=== PATIENT | female | born 1975 | race African-American/Black ===

== ENCOUNTER 2017-04-21 11:01 | Day surgery (SDC) | payer MEDICARE ==
[~2017-04-21] VITALS: Ht 175.3 cm; Wt 147.7 kg
[2017-04-21] MEDS ORDERED: COREG12.5 MG PO (11:39)
[2017-04-21] MEDS ORDERED: PRINIVIL20 MG (11:40)
[2017-04-21] MEDS ORDERED: FERRETTS324 MG PO (11:40)
[2017-04-21] MEDS ORDERED: ZOLOFT100 MG PO (11:41)
[2017-04-21] MEDS ORDERED: K-TAB10 MEQ PO (11:42)
[2017-04-21 11:52] LABS: HEMATOCRIT 36.3 % (36.0-48.0); HEMOGLOBIN 12.1 g/dL (12-16); MCH 31.4 pg (26.0-34.0); MCHC 33.3 g/dL (31.0-37.0); MCV 94.3 fL (80.0-100.0); MEAN PLATELET VOLUME 11.1 fL (7.4-10.4); RBC 3.85 10x6/uL (4.00-5.40); RDW 12.8 % (11.5-14.5); WBC 5.6 10x3/uL (4.8-10.8)
[2017-04-21 11:53] VITALS: BP 159/67; Ht 175.3 cm; Wt 147.7 kg
[2017-04-21 12:15] LABS: POTASSIUM - SERUM 2.7 mmol/L (3.5-5.1)
--- NOTE | 2017-04-21 13:30 | NUR ---
PT REC'D TO ROOM VIA STRETCHER. AWAKE, ALERT, ORIENTED.
--- NOTE | 2017-04-21 13:40 | NUR ---
DR. HAN IN TO TALK WITH PT AND FAMILY. FULL LIQ DIET PROVIDED.
[2017-04-21 14:03] LABS: ALBUMIN 3.4 g/dL (3.4-5.0); ALKALINE PHOSPHATASE 68 U/L (46-116); ALT (SGPT) 17 U/L (10-68); AMYLASE - SERUM 44 U/L (25-115); CALC OSMOLALITY 278 mosm/kg (275-300); CALCIUM 9.5 mg/dL (8.5-10.1); CHLORIDE - SERUM 102 mmol/L (98-107); CREATININE - SERUM 0.8 mg/dL (0.6-1.3); GLUCOSE 89 mg/dL (74-106); LIPASE 94 U/L (73-393); PROTEIN - SERUM 8.1 g/dL (6.4-8.2); SODIUM 141 mmol/L (136-145); UREA NITROGEN 10 mg/dL (7-18); eGFR NON AFRICAN AMERICAN 84 mL/min (90-120)
--- NOTE | 2017-04-21 14:05 | NUR ---
POTASSIUM DOSE GIVEN ORDERED.
--- NOTE | 2017-04-21 14:12 | NUR ---
IV D/C'D CATH INTACT.
--- NOTE | 2017-04-21 14:22 | NUR ---
D/C INSTRUCTIONS EXPLAINED TO PT. VOICED UNDERSTANDING. COPIES OF ALL GIVEN, WELL WRITTEN RX FOR ZANTAC PER DR. HAN.
--- NOTE | 2017-04-21 14:23 | NUR ---
D/C'D HOME VIA W/C TO PRIVATE CAR.
--- NOTE | 2017-04-26 15:23 | OP ---
PATIENT NAME: CHRISTIAN LORD MEDICAL RECORD: [id number] :77 LOCATION:[facility] ADMISSION DATE: SURGEON: CHRISSIE HAN MD DATE OF OPERATION: 04/21/2017 PROCEDURE: EGD with biopsy. INDICATIONS: Ms. Lord is a delightful 41-year-old woman with a history of heartburn and upper abdominal pain. She presents for outpatient EGD. PREMEDICATIONS: Total IV anesthesia (BMI of 48). INSTRUMENT: Olympus video gastroscope. PROCEDURE AND FINDINGS: After receiving informed consent, Ms. Lord' posterior pharynx was anesthetized with Cetacaine spray. She was placed in left lateral decubitus position, sedated as per anesthesia. After achieving adequate level of sedation, gastroscope was introduced per orally and advanced to the duodenum without difficulty. The esophageal mucosa was without erythema, ulcers, strictures or masses, appeared normal down the GE junction. Biopsies were taken from the distal third of the esophagus to rule out microscopic evidence of GE reflux disease. A small sliding type hiatal hernia was present. Gastric mucosa was notable for several patches of erythema in the body of the stomach, which were biopsied. No lesions were seen in the cardia or fundus, nor along the incisura. The antral mucosa was without erythema or ulcers. Biopsies were taken to rule out Helicobacter pylori. Pylorus was patent and competent. There was gastric peristaltic activity noted. The duodenal bulbar mucosa was without erythema or ulcers. The second portion of the duodenal mucosa was without erythema or ulcers and was biopsied. The major ampulla was mildly prominent and was likewise biopsied. Gastroscope was then withdrawn. Ms. Lord tolerated the procedure well, no immediate complications. ASSESSMENT: 1. Small sliding type hiatal hernia. 2. Patchy gastritis, rule out Helicobacter pylori. 3. Prominent major ampulla, status post biopsy. 4. Upper abdominal pain, no obvious etiology on today's EGD. RECOMMENDATIONS: 1. Follow up histopathology. 2. Ranitidine 150 mg p.o. b.i.d. 3. Right upper quadrant ultrasound. 4. We will check amylase, lipase, liver function tests. TRANSINT:[id number] Voice Confirmation ID: [id number] DOCUMENT ID: [id number] CHRISSIE HAN MD at [id number] CC: BRI ERNST MD [id number] DICTATION DATE: 04/21/17 1321 OPTICIAN MANAGER: 04/21/17 1613 [facility] 04/21/17 [facility] [address] [place] [address]
== END 2017-04-21 14:33 | disposition home or self-care (01) ==
LOC: D.OPS 11:01
PROVIDERS: Anesthesiology
DX: K44.9 Diaphragmatic hernia without obstruction or gangrene (principal); K29.70 Gastritis, unspecified, without bleeding; Z01.812 Encounter for preprocedural laboratory examination

== ENCOUNTER → 2017-04-27 08:25 | Outpatient (CLI) | payer MEDICARE ==
[2017-04-21 11:53] VITALS: BMI 48.1
[~2017-04-27 08:25] MED LIST: COREG12.5 MG PO; FERRETTS324 MG PO; K-TAB10 MEQ PO; NULEV0.125 MG PO; PRINIVIL20 MG; ZOLOFT100 MG PO
== END | disposition home or self-care (01) ==
LOC: D.US 08:25
DX: R10.9 Unspecified abdominal pain (principal)

== ENCOUNTER 2017-05-19 10:43 | Day surgery (SDC) | payer MEDICARE ==
--- NOTE | ~2017-05-19 | OP ---
PATIENT NAME: CHRISTIAN VALENTINO MEDICAL RECORD: [id number] :77 LOCATION:[facility] ADMISSION DATE: SURGEON: CHRISSIE HAN MD DATE OF OPERATION: 05/19/2017 PROCEDURE: Colonoscopy with ileoscopy and biopsy. REFERRING PHYSICIAN: Gian Ernst MD INDICATIONS: Ms. Valentino is a very pleasant 41-year-old woman with a history of heartburn, constipation, generalized abdominal pain. She had an EGD on 04/21/2017 with finding showing small sliding type hiatal hernia, patchy gastritis. Gastric biopsies were negative for Helicobacter pylori. Distal esophageal biopsies were consistent with mild chronic esophagitis, reflux like injury. She had an ultrasound on 04/27/2017 with finding showing normal appearing gallbladder with a common bile duct measuring up to 0.4 cm. She presents for outpatient colonoscopy. PREMEDICATIONS: Total IV anesthesia (BMI of 48, congestive heart failure), propofol 450 mg. INSTRUMENT: Olympus video colonoscope. PROCEDURE AND FINDINGS: After receiving informed consent, Ms. Valentino was placed in left lateral decubitus position, sedated as per anesthesia. After achieving adequate level of sedation, digital rectal exam was performed that showed no external hemorrhoidal tags, fissures or fistulas, normal sphincter tone, no palpable rectal masses. The colonoscope was introduced per rectally and advanced to the cecum without difficulty. The cecum, IC valve, and appendiceal orifice were identified and appeared normal. The terminal ileum was intubated and the distal small bowel mucosa was remarkable for very mild scant erythema and distal ileal biopsies were obtained. As the colonoscope was withdrawn, careful inspection was made of the wright of the colon. Overall mucosa had normal vascular and fold pattern. No polyps, masses, ulcers or diverticula were noted. Retroflexion in rectum, mild internal hemorrhoids were present. A good prep was present. Ms. Valentino tolerated the procedure well, no immediate complications. ASSESSMENT: 1. Mild nonspecific erythema of the terminal ileum, likely secondary to bowel prep, status post biopsy. 2. Suspect constipation, dominant irritable bowel syndrome. RECOMMENDATIONS: 1. Follow up histopathology. 2. Benefiber daily. 3. High fiber diet. 4. NuLev 0.125 mg sublingually q.4-6 hours p.r.n. abdominal cramping. 5. Recommend a screening colonoscopy in 10 years at age 51. TRANSINT:[id number] Voice Confirmation ID: [id number] DOCUMENT ID: [id number] OPERATIVE REPORT [id number] CHRISTIAN VALENTINO TERRI MD at 1925 CC: GIAN ERNST MD [id number] DICTATION DATE: 05/19/17 1354 SOLDERING MACHINE FEEDER: 05/19/17 1415 [facility] [place] 05/19/17 [place] [id number] [place] [id number]
[~2017-05-19 10:43] MED LIST changes: -NULEV0.125 MG PO
[2017-05-19 12:28] LABS: BASOPHILS 0.2 % (0-2); HEMATOCRIT 35.3 % (36.0-48.0); HEMOGLOBIN 11.9 g/dL (12-16); IMMATURE GRANULOCYTES 0.3 % (0-5); MCH 31.6 pg (26.0-34.0); MCHC 33.7 g/dL (31.0-37.0); MCV 93.6 fL (80.0-100.0); MEAN PLATELET VOLUME 11.2 fL (7.4-10.4); MONOCYTES 9.9 % (2-11); NEUTROPHILS 62.6 % (40-80); PLATELET COUNT 197 10x3/uL (130-400); RBC 3.77 10x6/uL (4.00-5.40); RDW 12.8 % (11.5-14.5); WBC 5.7 10x3/uL (4.8-10.8)
[2017-05-19] MEDS ORDERED: NULEV0.125 MG PO (14:17)
== END 2017-05-19 15:21 | disposition home or self-care (01) ==
LOC: D.OPS 10:43
PROVIDERS: Anesthesiology
DX: K59.00 Constipation, unspecified (principal); R12 Heartburn; R19.4 Change in bowel habit; R10.84 Generalized abdominal pain; K63.9 Disease of intestine, unspecified; K64.8 Other hemorrhoids; I50.9 Heart failure, unspecified; Z01.812 Encounter for preprocedural laboratory examination

== ENCOUNTER → 2019-04-30 10:14 | Outpatient (CLI) | payer MEDICARE ==
[~2019-04-30 10:14] MED LIST changes: +NULEV0.125 MG PO
== END | disposition home or self-care (01) ==
LOC: D.RAD 10:14
PROVIDERS: ATTEND Emergency Medicine
DX: M25.511 Pain in right shoulder (principal)